=== PATIENT | female | born 1990 | race Caucasian/White ===

== ENCOUNTER 2019-06-12 13:35 | Emergency (ER) | payer MEDICAID ==
[~2019-06-12] VITALS: Ht 149.9 cm; Wt 40.0 kg
[2019-06-12 14:54] LABS: CLARITY,URINE SLIGHTLY CLOUDY (Clear); COLOR,URINE YELLOW (Yellow); GLUCOSE, URINE NEGATIVE (Neg); KETONES,URINE TRACE mg/dl (Neg); LEUKOCYTE ESTERASE ,URINE NEGATIVE (Neg); NITRITES, URINE NEGATIVE (Neg); OCCULT BLOOD,URINE TRACE-INTACT (Neg); PROTEIN,URINE NEGATIVE (Neg); UROBILINOGEN,URINE 0.2 E.U/dL (0.2-1.0)
[2019-06-12 14:56] LABS: BASOPHILS % (AUTO) 0.6 % (0-1); EOSINOPHILS # (AUTO) 0.1 X10'3 (0-0.9); EOSINOPHILS % (AUTO) 0.7 % (0-6); HEMATOCRIT 42.5 % (35.0-45.0); HEMOGLOBIN 14.4 g/dl (12.0-16.0); LYMPHOCYTES % (AUTO) 28.4 % (21-51); MEAN CORPUSCULAR HEMOGLOBIN 29.2 PG (27.0-31.0); MEAN CORPUSCULAR HGB CONC 33.9 g/dL (33.0-36.5); MEAN CORPUSCULAR VOLUME 86.2 FL (78-98); MEAN PLATELET VOLUME 7.8 FL (7.4-10.4); MONOCYTES # (AUTO) 0.5 X10'3 (0-0.9); MONOCYTES % (AUTO) 7.7 % (2-12); NEUTROPHILS # (AUTO) 4.4 X10'3 (1.8-7.7); NEUTROPHILS % (AUTO) 62.6 % (42-75); PLATELET COUNT 248 X10'3 (140-440); RED BLOOD COUNT 4.93 X10'6 (4.20-5.60); RED CELL DISTRIBUTION WIDTH 13.4 % (11.5-14.5)
[2019-06-12 14:57] LABS: URINE HCG NEGATIVE (NEG)
[2019-06-12 15:00] LABS: UA COLLECTION TYPE CLN CATCH MIDSTREAM
[2019-06-12 15:01] LABS: BACTERIA,URINE 1+ /HPF (Neg); MUCUS STRANDS MODERATE /LPF (Neg); RBC,URINE 0-2 /HPF (0-2); SQUAMOUS EPITHELIAL CELL,UR MODERATE /LPF (FEW); WBC,URINE 0-4 /HPF (0-4)
[2019-06-12 15:10] LABS: ALANINE AMINOTRANSFERASE 23 U/L (12-78); ALBUMIN 4.2 G/DL (3.4-5.0); ALBUMIN/GLOBULIN RATIO 1.1 (1.1-1.5); ALKALINE PHOSPHATASE 67 IU/L (46-116); ANION GAP 10 (8-16); ASPARTATE AMINO TRANSFERASE 17 U/L (10-37); BILIRUBIN,TOTAL 0.4 MG/DL (0.1-1.0); BLOOD UREA NITROGEN 10 MG/DL (7-18); BUN/CREATININE RATIO 13.5 (6.6-38.0); CALCIUM 8.7 MG/DL (8.5-10.1); CHLORIDE 105 MMOL/L (99-107); CREATININE 0.74 MG/DL (0.40-0.90); GLUCOSE 87 MG/DL (70-104); LIPASE 180 U/L (73-393); POTASSIUM 3.7 MMOL/L (3.5-5.1); SODIUM 140 MMOL/L (135-145); TOTAL CARBON DIOXIDE 24.8 MMOL/L (24-32); TOTAL PROTEIN 8.1 G/DL (6.4-8.2); eGFR > 90 ML/MIN
--- NOTE | 2019-06-12 15:18 | NUR ---
Discussed pt's c/o pain with JAMEY Lainez; new order for toradol IM received.
[2019-06-12] MEDS ORDERED: ketorolac trometh inj. 60 MG/2 ML VIAL IM ONE (15:20)
--- NOTE | 2019-06-12 15:23 | NUR ---
PT STATES, IM TO ANXIOUS TO GET A SHOT I DONT WANT THE TORADOL.
--- NOTE | 2019-06-12 15:28 | NUR ---
aFTER EXPLAINING DIFFERENCE OF PAIN AND ANXIETY, PT AGRRED TO ORDERED IM PAIN MEDS.
--- NOTE | 2019-06-12 15:41 | NUR ---
DISCUSSED PT'S C/O ANXIETY WITH JAMEY DALE; NEW ORDER FOR MALOU RECEIVED.
[2019-06-12] MEDS ORDERED: metoclopramide 5 mg/ml inj IM ONE (15:45)
[2019-06-12] MEDS ORDERED: metoclopramide 5 mg/ml inj IV ONE (15:45)
[2019-06-12 16:19] VITALS: BP 106/54
--- NOTE | 2019-06-12 17:01 | NUR ---
Raghavendra christensen in ED - 06/12/19 at 1702 by RSKIEL JAMEY WALKER INDICATED OK TO GIVE PT REQUESTED WATER. PROVIDED.
--- NOTE | 2019-06-12 17:47 | NUR ---
PT TO [facility] FOR US OF ABD.
--- NOTE | 2019-06-12 18:30 | NUR ---
back from of[facility] to [address]. ultrasound completed.
[2019-06-12] MEDS ORDERED: iohexol 300mg/ml 100ml inj. ONE (18:36)
[2019-06-12] MEDS ORDERED: mag hydrox/Alum hydrox/simeth 30ml oral suspension PO STA (18:54)
[2019-06-12] MEDS ORDERED: pantoprazole 40mg Tablet.DR PO STA (18:54)
[2019-06-12] MEDS ORDERED: ondansetron 4mg rapidly disintigrating tab PO ONE (18:55)
[2019-06-12] MEDS ORDERED: DICY10CA88 PO (18:59)
[2019-06-12] MEDS ORDERED: PANT20TA3 PO (18:59)
[2019-06-12] MEDS ORDERED: ONDA4TAB6 PO (18:59)
== END 2019-06-12 20:01 | disposition home or self-care (01) ==
LOC: ER 13:35
DX: R10.13 Epigastric pain (principal); R10.11 Right upper quadrant pain; R10.12 Left upper quadrant pain; R11.2 Nausea with vomiting, unspecified; Z90.710 Acquired absence of both cervix and uterus; Z98.890 Other specified postprocedural states; Z88.8 Allergy status to other drugs, medicaments and biological substances; Z79.899 Other long term (current) drug therapy
CPT/HCPCS: 36415; 74177; 80053; 81001; 81025; 83605; 83690; 84145; 85025; 93975; 96372; 99284; J1885; Q9967